=== PATIENT | male | born 1950 | race Caucasian/White ===

== ENCOUNTER → 2018-03-27 02:53 | Outpatient (CLI) | payer OTHER, SELFPAY ==
[2018-03-27 12:53] LABS: Anion Gap 1.1 mmol/L (3-11); BUN 21 mg/dL (7-18); CO2 29.9 mmol/L (21.0-32.0); CREATININE 1.02 mg/dL (0.70-1.30); Calcium 8.5 mg/dL (8.5-10.1); Chloride 105 mmol/L (98-107); Glucose 83 mg/dL (70-100); Potassium 4.8 mmol/L (3.5-5.1); Sodium 136 mmol/L (136-145)
== END ==
PROVIDERS: PCP Family Medicine; Visit Provider Family Medicine
DX: I25.810 Atherosclerosis of coronary artery bypass graft(s) without angina pectoris (principal)
CPT/HCPCS: 36415; 80048

== ENCOUNTER 2021-04-10 10:38 | Outpatient (CLI) | payer MEDICARE, SELFPAY ==
--- NOTE | 2021-04-10 11:15 | RT.EKG_ITS ---
APPROVED REPORT Exam: Resting ECG Reason for Exam: chest pain Patient Location: O HR:69 bpm ECG Measurements Heart Rate 69 AXIS OK 154 P 42 QRSd 98 QRS 77 QT 354 T 267 QTc 380 Conclusion Sinus rhythm...normal P axis, V-rate 60- 99 Probable LVH with secondary repol abnrm...multiple LVH criteria
[2021-04-10 20:16] LABS: Anion Gap 7.6 mmol/L (3-11); BUN 27 mg/dL (7-18); CO2 26.4 mmol/L (21.0-32.0); CREATININE 1.3 mg/dL (0.70-1.30); Calcium 9.1 mg/dL (8.5-10.1); Calculated LDL 84 mg/dL (<100); Chloride 106 mmol/L (98-107); Cholesterol 149 mg/dL (<200); Glucose 93 mg/dL (74-106); HDL Cholesterol 50 mg/dL (40-60); Potassium 4.9 mmol/L (3.5-5.1); Sodium 140 mmol/L (136-145); Triglyceride 78 mg/dL (<150)
== END 2021-04-10 10:39 | disposition home or self-care (01) ==
PROVIDERS: PCP Nurse Practitioner; Visit Provider Family Medicine
DX: I25.119 Atherosclerotic heart disease of native coronary artery with unspecified angina pectoris (principal); E78.5 Hyperlipidemia, unspecified; I25.810 Atherosclerosis of coronary artery bypass graft(s) without angina pectoris; R07.9 Chest pain, unspecified; I25.10 Atherosclerotic heart disease of native coronary artery without angina pectoris
CPT/HCPCS: 80048; 80061; 93010

== ENCOUNTER 2021-04-16 01:01 | Outpatient (CLI) | payer MEDICARE, SELFPAY ==
--- NOTE | 2021-04-16 07:30 | DI.NM_ITS ---
APPROVED REPORT Exam: Pharmacologic paired with low level exercise Patient Location: Out-Patient Room/Bed: Stress Nurse: Jeanette Braxton RN Ordering Provider:LO DANIELLE MD, Contact Number: [phone] BMI: 22.46 Baseline Rhythm: Sinus Rhythm Comment: Inverted T waves in leads in inferolateral leads Indications: Angina, CABG 10 years ago, chest pain, CAD, HLD Medical History Medical History: CAD, HLD, ED, Hx of tobacco use Cardiac Medications: Nitro SL PRN, Atorvastatin, Aspirin, Allergies: Simvastatin Cardiac Risk Factors: Hyperlipidemia, FHX of CAD, CVD, Smoking (gerson) Previous Cardiac Procedures: CABG 2010 Pretest Chest Pain Characteristics: No chest pain Exercise History: Sedentary Physical Disabilities: None Lung Sounds: Clear to auscultation Heart Sounds: Regular Stress Test Details Test: Pharmacologic stress was paired with low level exercise. Reason for pharmacologic stress test: Inferolateral T wave inversions. Nuclear Acquisition: Rest Tc-99m/Stress Tc-99m 1 day Rest Isotope: Tc-99m Sestamibi. Dose: 10.4 Date: 04/16/2021 Injection Time: 0930 Stress Isotope: Tc-99m Sestamibi. Dose: 29.3 Date: 04/16/2021 Injection Time: 1410 HR Resting HR Supine: 80 bpm Max Heart Rate (APMHR): 152.294499 bpm Resting HR Standin bpm Target HR (85% APMHR): 129.458536 bpm Max HR Achieved: 138 bpm % of APMHR: 90.79 Recovery HR: 96 bpm BP Resting BP Supine: 120/68 mmHg Resting BP Standin/74 mmHg Max BP: 156/72 mmHg Recovery BP: 130/70 mmHg ECG Resting ECG: Sinus Rhythm w/ inverted T waves inferolateral leads Ectopy: none Stress ECG: Sinus Tachycardia w/ inverted T waves inferolateral leads ST Change: No significant ST segment changes noted Arrhythmia: occasional PVC Recovery ECG: Sinus Rhythm w/ inverted T waves inferolateral leads Recovery ST Change: No significant ST segment changes noted Recovery Arrhythmia: occasional PVC Clinical Stress Symptoms: Dyspnea Rate Pressure Product: [id number] Stress ECG Conclusion 1. Resting electrocardiogram showed left ventricular hypertrophy with repolarization abnormalities 2. The patient underwent low-level stress, paired with pharmacologic stress with regadenoson 3. Peak heart rate achieved was 90% of predicted for age 4. Electrocardiographically the test was nondiagnostic due to resting ST-T abnormalities Stress Test Summary STAGE HR BP Symptoms NOTES Supine 80 120/68 1 min post Lexiscan injection 128 132/74 mild SOB 3 min post Lexiscan injection 128 156/72 6 min post Lexiscan injection 96 130/70 symptoms resolved. Standing 95 118/74 Lexiscan injection given while patient walked on treadmill at 2.0 mph and 0% grade. MPI Conclusion Myocardial perfusion showed no evidence of significant ischemia or areas of prior infarction EF with stress was 43% Radiologist Interpretation Radiologist Interpretation by: Francisco Alfred MD Interpretation Date/Time: 04/16/2021 16:19:24
[2021-04-16] MEDS: Regadenoson 0.4 MG/5 ML SYR IVP (14:27)
== END 2021-04-16 01:21 ==
PROVIDERS: PCP Nurse Practitioner; Visit Provider Family Medicine
DX: E78.5 Hyperlipidemia, unspecified (principal); I25.810 Atherosclerosis of coronary artery bypass graft(s) without angina pectoris; R07.9 Chest pain, unspecified; Z95.1 Presence of aortocoronary bypass graft; Z82.49 Family history of ischemic heart disease and other diseases of the circulatory system; Z87.891 Personal history of nicotine dependence; R94.39 Abnormal result of other cardiovascular function study
CPT/HCPCS: 78452; 93016; 93018; 93017; J2785

== ENCOUNTER → 2022-07-06 16:36 | Outpatient (CLI) | payer MEDICARE, SELFPAY ==
--- NOTE | 2022-07-06 16:15 | DI.RAD_ITS ---
Exam(s) XR THORACIC SPINE COMPLETE EXAM: XR THORACIC SPINE COMPLETE CLINICAL HISTORY: fall M54.6 PAIN IN T SPINE TECHNIQUE: COMPARISON: CR PORTABLE AP CHEST from 11/02/2010 FINDINGS: Four views were obtained. There are multiple sternal sutures. There is mild loss of height anterior ly of what appears to be T11 or T12. This may represent a compression fracture of uncertain age. Sl ight deformity of posterior cortex is also noted. Probable mild anterior T6 vertebral body compression fracture also noted, of uncertain age. IMPRESSION: Probable compression fractures of uncertain age, no prior studies available for comparison, additiona l evaluation with thoracic spine CT or MR recommended to evaluate the stability of these fractures an d any potential impingement on the spinal canal. Unexpected findings RADIATION DOSE DELIVERED: Total DLP
== END ==
PROVIDERS: PCP Nurse Practitioner Family; Visit Provider Nurse Practitioner Family
DX: M54.6 Pain in thoracic spine (principal); W19.XXXA Unspecified fall, initial encounter; M48.54XA Collapsed vertebra, not elsewhere classified, thoracic region, initial encounter for fracture
CPT/HCPCS: 72072

== ENCOUNTER → 2022-07-14 01:25 | Outpatient (CLI) | payer MEDICARE, SELFPAY ==
--- NOTE | 2022-07-14 06:45 | DI.MRI_ITS ---
Exam(s) MR THORACIC SPINE WO EXAM: MR THORACIC SPINE WO CLINICAL HISTORY: comp fx body of thoracic vertebra,pain,s22.000a. TECHNIQUE: Multiplanar multisequence MRI of the Thoracic spine was performed. COMPARISON: CR PORTABLE AP CHEST from 11/02/2010 CT ABD PELVIS WITH CONTRAST from 07/17/2011 CR XR THORACIC SPINE COMPLETE from 07/06/2022 FINDINGS: Bones: There is loss of height of the T6 vertebral body. There is a mild right convex thoracic scoli osis. In the T6 vertebral body there is mildly heterogeneous signal on the T2 weighted images and hy pointense signal within the body on the T1 weighted images. On the T2 weighted images there is a suly ear hypointense area paralleling the superior endplate suspicious for fracture. There is normal sign al seen in the T11 and T12 vertebral bodies. Degenerative endplate signal changes are seen at T8-T9, T9-T10 and T7-T8. On the T2 weighted images, there is mild hyperintense signal seen in the inferior T4 vertebra which is hypointense on the T1 weighted images. Cord: The thoracic cord is normal size and signal intensity. No intrinsic cord lesion is present. Discs: No disc herniation or bulge is present. Soft tissues: Normal. IMPRESSION: 1. Subacute mild compression fracture of T6. 2. Normal MRI appearance of the T11 and T12 vertebral bodies. No evidence of a fracture. 3. Abnormal signal seen in the inferior aspect of the T4 vertebral body. Differential considerations include fracture, atypical hemangioma or possibly degenerative changes. 4. Multilevel degenerative changes in the thoracic spine. No significant central spinal canal or leticia ral foraminal stenosis. DATA REPOSITORY:
== END ==
PROVIDERS: PCP Nurse Practitioner Family; Visit Provider Nurse Practitioner Family
DX: S22.050A Wedge compression fracture of T5-T6 vertebra, initial encounter for closed fracture (principal); M47.814 Spondylosis without myelopathy or radiculopathy, thoracic region; X58.XXXA Exposure to other specified factors, initial encounter
CPT/HCPCS: 72146

== ENCOUNTER 2022-09-13 01:11 | Outpatient (CLI) | payer MEDICARE, SELFPAY ==
[2022-09-13 09:43] LABS: HCT 42.3 % (40.0-50.0); HGB 13.5 g/dL (13.5-17.5); MCH 31.5 pg (27.0-33.0); MCHC 31.9 % (32.0-36.0); MCV 99 fL (80-95); MPV 8.9 fL (8.0-11.0); Platelet Count 307 10^3/uL (130-400); RBC 4.29 10^6/uL (4.36-5.78); RDW 12.8 % (11.8-14.1); RDW-SD 46.4 fL; WBC 6.01 10^3/uL (4.4-10.8)
[2022-09-13 10:10] LABS: CREATININE 1.3 mg/dL (0.70-1.30); Calculated LDL 67 mg/dL (<100); Cholesterol 139 mg/dL (<200); HDL Cholesterol 56 mg/dL (40-60); Triglyceride 82 mg/dL (<150)
[2022-09-13 10:22] LABS: ALT 36 U/L (16-63); AST 19 U/L (15-37); Albumin 3.7 g/dL (3.4-5.0); Alkaline Phosphatase 71 U/L (46-116); Anion Gap 6.4 mmol/L (3-11); BUN 28 mg/dL (7-18); Bilirubin, Total 0.3 mg/dL (0.2-1.0); CO2 26.6 mmol/L (21.0-32.0); CREATININE 1.3 mg/dL (0.70-1.30); Calcium 8.7 mg/dL (8.5-10.1); Chloride 106 mmol/L (98-107); Glucose 97 mg/dL (74-106); Potassium 4.5 mmol/L (3.5-5.1); Sodium 139 mmol/L (136-145); Total Protein 7.5 g/dL (6.4-8.2)
[2022-09-13 18:11] LABS: PSA, Screening 2.1 ng/mL (<=6.5)
== END 2022-09-13 01:12 | disposition home or self-care (01) ==
PROVIDERS: PCP Nurse Practitioner Family; Visit Provider Nurse Practitioner
DX: E78.5 Hyperlipidemia, unspecified (principal); I25.810 Atherosclerosis of coronary artery bypass graft(s) without angina pectoris; E11.9 Type 2 diabetes mellitus without complications; N52.9 Male erectile dysfunction, unspecified; Z87.891 Personal history of nicotine dependence; Z12.5 Encounter for screening for malignant neoplasm of prostate
CPT/HCPCS: 36415; 80053; 80061; 84153; 85027; 82565

== ENCOUNTER 2022-09-17 00:39 | Outpatient (CLI) | payer MEDICARE, SELFPAY ==
--- NOTE | 2022-09-17 07:45 | DI.CTLCSR_ITS ---
Exam(s) CT CHEST LUNG CANCER SCREEN EXAM: CT CHEST LUNG CANCER SCREEN CLINICAL HISTORY: Screening for lung cancer,CURRENT SMOKER, F17.210 TECHNIQUE: Imaging Protocol: Axial computed tomography images with coronal and sagittal reformatted images were created and reviewed. Low dose screening protocol. COMPARISON: CR XR THORACIC SPINE COMPLETE from 07/06/2022 FINDINGS: Tracheobronchial tree: No bronchiectasis or mucus plugging.. Mediastinum and Lisset: No dominant adenopathy or fluid collection. Pulmonary parenchyma: Mild apical scarring. No consolidation or dominant measurable mass. Mild emph ysematous changes, greater at the lung bases. Bleb medial right lower lobe.. Lung Nodules: 4 millimeter perifissural nodule noted anteriorly along the right minor fissure. Pleura: No effusion. No pneumothorax. Heart: Status post CABG. The heart is not dilated. Severe coronary artery calcifications are seen. Aorta: Thoracic aorta non-dilated.Mild atherosclerotic changes. Upper abdomen: Atherosclerotic changes of the abdominal aorta. Severe calcifications are noted at t he proximal renal arteries bilaterally. Bones: Sternal wires. Soft Tissues: Unremarkable. IMPRESSION: No suspicious pulmonary nodules. Lung RADS Cat 1 - Negative: No nodules and definitely benign nodules Lung-RADS 1.0 CATEGORIES: Category 0 - Prior chest CT exam(s) being located for comparison. Category 1 - Annual screening in 12 months. No nodules or definitely benign nodules. Category 2 - Annual screening in 12 months. Benign appearance. Nodules with low likelihood of becomin g active cancer. Category 3 - 6-month follow-up. Probably benign. Short-term follow-up suggested. Nodules with low lik elihood of becoming active cancer. Category 4A - 3-month follow-up and CT/PET if >8 mm in size. Suspicious finding. Findings which requi re additional testing. Category 4B - Findings which require additional testing and tissue sampling. Category 4X - Category 3 or 4 nodules with additional features or imaging findings that increases the suspicion of malignancy. Modifier S- Potentially clinically significant findings (non lung cancer) RADIATION DOSE DELIVERED: 88.41mGy.cm Total DLP DATA REPOSITORY: All CT scans at this facility are submitted to the National Radiology Data Registry (NRDR) Dose Index Registry (DIR) with the [employer] ([employer]). RADIATION OPTIMIZATION: All CT scans at this facility use at least one of these dose optimization te chniques: automated exposure control; mA and/or kV adjustment per patient size (includes targeted exa ms where dose is matched to clinical indication); or iterative reconstruction.
== END 2022-09-17 00:59 ==
LOC: DI 00:39
PROVIDERS: PCP Nurse Practitioner Family; Visit Provider Nurse Practitioner Family
DX: F17.210 Nicotine dependence, cigarettes, uncomplicated (principal); Z12.2 Encounter for screening for malignant neoplasm of respiratory organs
CPT/HCPCS: 71271

== ENCOUNTER 2023-12-09 10:28 | Outpatient (CLI) | payer MEDICARE, SELFPAY ==
[2023-12-09 10:37] LABS: HCT 41.9 % (40.0-50.0); HGB 13.6 g/dL (13.5-17.5); MCH 31.6 pg (27.0-33.0); MCHC 32.5 % (32.0-36.0); MCV 97 fL (80-95); MPV 9.2 fL (8.0-11.0); Platelet Count 298 10^3/uL (130-400); RDW 13.1 % (11.8-14.1); RDW-SD 46.7 fL; WBC 6.24 10^3/uL (4.4-10.8)
[2023-12-09 11:34] LABS: Anion Gap 5.2 mmol/L (3-11); BUN 25 mg/dL (7-18); CO2 27.8 mmol/L (21.0-32.0); CREATININE 1.4 mg/dL (0.70-1.30); Calcium 8.9 mg/dL (8.5-10.1); Calculated LDL 58 mg/dL (<100); Chloride 106 mmol/L (98-107); Cholesterol 127 mg/dL (<200); Estimated GFR 53.74 (mL/min/1.73m2); Glucose 95 mg/dL (74-106); HDL Cholesterol 56 mg/dL (40-60); Potassium 4.8 mmol/L (3.5-5.1); Sodium 139 mmol/L (136-145); Triglyceride 65 mg/dL (<150)
== END 2023-12-09 10:29 | disposition home or self-care (01) ==
LOC: LBO 10:29
PROVIDERS: PCP Nurse Practitioner Family; Visit Provider Nurse Practitioner Family
DX: Z00.00 Encounter for general adult medical examination without abnormal findings (principal); I25.810 Atherosclerosis of coronary artery bypass graft(s) without angina pectoris; E78.5 Hyperlipidemia, unspecified; Z87.891 Personal history of nicotine dependence; S22.000A Wedge compression fracture of unspecified thoracic vertebra, initial encounter for closed fracture; N52.03 Combined arterial insufficiency and corporo-venous occlusive erectile dysfunction; I25.10 Atherosclerotic heart disease of native coronary artery without angina pectoris; K57.90 Diverticulosis of intestine, part unspecified, without perforation or abscess without bleeding
CPT/HCPCS: 36415; 80048; 80061; 85027

== ENCOUNTER 2024-04-10 03:00 | Emergency (ER) | payer MEDICARE, SELFPAY ==
[2024-04-10 02:59] VITALS: BP 180/74; PULSE 68; RESP 16; TEMP 36.8; O2SAT 100
--- NOTE | 2024-04-10 03:00 | DI.CT_ITS ---
Exam(s) CT LUMBAR SPINE RECONS CT ABDOMEN PELVIS W EXAM: CT ABDOMEN PELVIS W CLINICAL HISTORY: right hip/groin pain. TECHNIQUE: Imaging Protocol: Axial computed tomography images with coronal and sagittal reformatted images were created and reviewed none. Images of the lumbar spine were reconstructed from the abdomen pelvic CT in bone and soft tissue algo rithm. CONTRAST MATERIAL: Intravenous: Omnipaque 350 Contrast volume:100 ml Oral: no COMPARISON: CT CT LUMBAR SPINE RECONS from 04/10/2024 FINDINGS: ABDOMEN and PELVIS: Lung Bases: No acute findings. Liver: Normal density. No suspicious mass. Gallbladder and biliary tract: No radiodense calculus. No biliary dilation. Pancreas: Normal density. No abnormal calcifications or inflammatory process. No evidence of mass. Spleen: Normal. Kidneys: Normal size, contour and axis. No radiodense stones. No obstructive uropathy. No suspicious masses seen. Adrenal glands: No masses seen. Vasculature: Mild dilatation of the infrarenal aorta to 3 cm. Severe atherosclerotic changes. Soft tissues: Unremarkable. Bladder: No gross wall thickening. No calculi.No focal mass. Bowel: No obstruction. No bowel wall thickening. Appendix normal. Mild diverticulosis. No evidenc e of diverticulitis. Moderate quantity of stool. Peritoneal cavity: No ascites. No focal collection. No mesenteric inflammatory response. Reproductive organs: Prostate mildly enlarged. Lymph nodes: No pathologically enlarged lymph nodes. Bones: The hip joint spaces are maintained. No significant degenerative changes. Degenerative changes are present in the lumbar spine greatest at L4-5. There is bilateral neural for aminal narrowing at this level as well as moderate central canal stenosis. There is a left L5 spondy lolysis but no spondylolisthesis. Degenerative changes seen to a lesser extent at the other levels. IMPRESSION:: No acute abnormality in the abdomen or pelvis. Degenerative changes at L4-5 cause moderate central canal stenosis and bilateral neural foraminal na rrowing. Left L5 spondylolysis. 3 centimeter infrarenal aortic aneurysm. Atherosclerotic changes. RADIATION DOSE DELIVERED: 255.47mGy.cm Total DLP DATA REPOSITORY: All CT scans at this facility are submitted to the National Radiology Data Registry (NRDR) Dose Index Registry (DIR) with the [employer] ([employer]). RADIATION OPTIMIZATION: All CT scans at this facility use at least one of these dose optimization te chniques: automated exposure control; mA and/or kV adjustment per patient size (includes targeted exa ms where dose is matched to clinical indication); or iterative reconstruction.
[2024-04-10 03:02] VITALS: BP 180/74; PULSE 72; O2SAT 99
[2024-04-10 03:03] VITALS: O2SAT 99
[2024-04-10] MEDS: MORPHine 4 MG/ML SYR (03:13)
[2024-04-10] MEDS: diazePAM 5 MG TAB (03:13)
[2024-04-10] MEDS: Ketorolac 15 MG/ML VIAL (03:13)
[2024-04-10 03:15] LABS: Abs Immature Grans 0.03 10^3/uL (0.0-0.06); Absolute Basophil Count 0.04 10^3/uL (0.0-0.2); Absolute Eosinophil Count 0.07 10^3/uL (0.0-0.7); Absolute Lymphocyte Count 0.94 10^3/uL (1.2-3.4); Absolute Monocyte Count 0.38 10^3/uL (0.1-0.8); Absolute Neutrophil Count 5.32 10^3/uL (1.2-6.7); Basophils % 0.6 %; HGB 12.5 g/dL (13.5-17.5); Immature Grans % 0.4 %; Lymphocytes % 13.9 %; MCH 32.3 pg (27.0-33.0); MCHC 32.1 % (32.0-36.0); MCV 101 fL (80-95); MPV 9.2 fL (8.0-11.0); Monocytes % 5.6 %; Neutrophils % 78.5 %; Platelet Count 285 10^3/uL (130-400); RBC 3.87 10^6/uL (4.36-5.78); RDW 12.7 % (11.8-14.1); RDW-SD 47.6 fL; WBC 6.78 10^3/uL (4.4-10.8)
[2024-04-10 03:25] LABS: Bilirubin Negative (Negative); Blood Trace-intact (Negative); Clarity Clear (Clear); Glucose Negative (Negative); Ketones Negative (Negative); Leukocyte Esterase Negative (Negative); Nitrite Negative (Negative); Specific Gravity >= 1.030 (1.005-1.025); Urobilinogen 0.2 mg/dL (Up to 0.2); pH 5.5 (5-8)
--- NOTE | 2024-04-10 03:25 | ED.GENADUL_ITS ---
Discharge Plan Disposition Patient Disposition: Home Condition: Improving Discharge Details Clinical Impression: Acute hip pain Primary Care Provider: Eleni Burton ED Provider: Vanesa Murcia Home Meds and New Rx's Prescriptions: New diazepam 5 mg tablet 5 mg PO BID PRNQty: 7 0RF lidocaine 5 % adhesive patch,medicated 1 patch topical DAILY Qty: 15 0RF Rx Instructions: leave on most painful area for up to 12 hrs Continued nitroglycerin [Nitrostat] 0.4 mg tablet, sublingual 0.4 mg Sublingual PRN Qty: 25 3RF Rx Instructions: FOR CHEST PAIN. glucosamine HCl 500 mg tablet 500 mg PO DAILY Rx Instructions: administer with a meal turmeric 400 mg capsule 400 mg PO DAILY aspirin [Aspir-81] 81 MG tablet,delayed release (DR/EC) 81 mg PO DAILY acetaminophen [Tylenol Extra Strength] 500 MG tablet 2 tab PO BID PRN atorvastatin [Lipitor] 20 mg tablet 20 mg PO HS Qty: 90 3RF Discharge Instructions Instructions: Opioids for Short-Term Treatment of Pain ED, Hip Pain ED Additional Instructions: Tylenol and ibuprofen over the counter for pain; follow the directions on the bottle. Diazapam up to twice a day as needed for muscle spasm. Lidocaine patch on the hip; change very 24 hours You can take oxycodone up to twice a day as needed for pain that does not respond to the other medications. Call your primary care doctor today to schedule an appointment for within the next 48 hours to followup on your visit here. Your CT showed an incidental aneurysm in your aorta; this is small. Your primary care doctor may want to get repeat imaging of this at some point to see if it is getting larger. Return to the emergency department for new or worsening symptoms including uncontrolled pain, new/different/worse pain, inability to walk, numbness, tingling, weakness, bowel/bladder incontinence, or if you have any other concerns. Referrals: Eleni Burton NP [Primary Care Provider] - [facility] General Mode of arrival: EMS . Date/Time Provider Initiated Documentation: 04/10/24 03:24 . Limitations to Documentation: no limitations . Information obtained by: patient . HPI Narrative: 73yo M with hx CAD, sciatica, presenting for acute right hip and low back pain. Started around midnight while he was playing with the dog, has been worsening since then. Initially was able to sleep but has been waking to severe spasms of pain. Pain is in his right hip, radiates to low back and right thigh/groin. 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 No numbness, tingling, or weakness. No bowel/bladder incontinence. No testicular pain. No recent falls or injuries. Otherwise in his usual state of health with no fevers, chills, rash, nausea, vomiting, abdominal pain, dysuria, hematuria, or other concerns. Related Data Home Medications ?Medication ?Instructions ?Recorded ?Confirmed acetaminophen 500 mg tablet 2 tab PO BID PRN 01/17/13 04/10/24 (Tylenol Extra Strength) aspirin 81 mg tablet,delayed 81 mg PO DAILY 01/17/13 04/10/24 release (Aspir-) glucosamine HCl 500 mg tablet 500 mg PO DAILY 07/04/20 04/10/24 turmeric 400 mg capsule 400 mg PO DAILY 07/04/20 04/10/24 nitroglycerin 0.4 mg sublingual 0.4 mg sublingual PRN #25 tab-caps 08/30/22 04/10/24 tablet (Nitrostat) atorvastatin 20 mg tablet (Lipitor) 20 mg PO HS #90 tab-caps 11/29/23 04/10/24 diazepam 5 mg tablet 5 mg PO BID PRN #7 tabs 04/10/24 lidocaine 5 % topical patch 1 patch topical DAILY #15 ea 04/10/24 Previous Rx's ?Medication ?Instructions ?Recorded nitroglycerin 0.4 mg sublingual 0.4 mg sublingual PRN #25 tab-caps 08/30/22 tablet (Nitrostat) atorvastatin 20 mg tablet (Lipitor) 20 mg PO HS #90 tab-caps 11/29/23 diazepam 5 mg tablet 5 mg PO BID PRN #7 tabs 04/10/24 lidocaine 5 % topical patch 1 patch topical DAILY #15 ea 04/10/24 Allergies Allergy/AdvReac Type Severity Reaction Status Date / Time simvastatin AdvReac Unknown MYALGIAS Verified 04/10/24 03:04 General Stated Complaint: Nk/Back Pain ARI: 3 Review of Systems Narrative: see HPI Exam Narrative Exam Narrative: General: Alert, well appearing Head: Normocephalic, atraumatic Neck: Trachea midline, ?Neck supple. ENT: ?MMM.? Cardiac: ?RRR, no murmurs appreciated Resp: No respiratory distress. CTAB. Abd: ?Soft, non-distended, nontender : ?No suprapubic tenderness. No CVA tenderness. No palpable inguinal her nias. Extremities: ?No deformities.? No peripheral edema. Back: No midline tenderness. Reproducible symptoms with palpation of right sacral region with palpable muscle spasm. No other tenderness. Neuro: ? GCS 15.? PERRL.? EOMI.? Fluent speech, no dysarthria. Motor- 5/5 strength symmetric bilateral lower extremities Sensation- ?Intact to light touch and symmetric multiple dermatomes bilateral lower extremities, no saddle anesthesia Gait/station: ?Normal stance.? No truncal ataxia. Steady gait with equal normal steps Course Vital Signs Vital signs: Vital Signs Temperature 36.8 C 04/10/24 02:59 Pulse 68 04/10/24 02:59 Respiratory Rate 16 04/10/24 02:59 Blood Pressure 180/74 H 04/10/24 02:59 Pulse Oximetry 100 04/10/24 02:59 Temperature 36.8 C 04/10/24 02:59 Temperature Source Temporal Artery Scan 04/10/24 02:59 Pulse 68 04/10/24 02:59 Respiratory Rate 16 04/10/24 02:59 Respiratory Effort Normal 04/10/24 03:05 Blood Pressure 180/74 H 04/10/24 02:59 Pulse Oximetry 100 04/10/24 02:59 Oxygen Delivery Method Room Air 04/10/24 02:59 Oxygen Flow Rate 0 04/10/24 02:59 Pain Level 4 04/10/24 03:13 Lab/Test Results Lab/Test Results: Laboratory Tests Range/Units 04/10/24 03:02 WBC (4.4-10.8) 10^3/uL 6.78 RBC (4.36-5.78) 10^6/uL 3.87 L Hgb (13.5-17.5) g/dL 12.5 L Hct (40.0-50.0) % 39.0 L MCV (80-95) fL 101 H MCH (27.0-33.0) pg 32.3 MCHC (32.0-36.0) % 32.1 RDW (11.8-14.1) % 12.7 Plt Count (130-400) 10^3/uL 285 MPV (8.0-11.0) fL 9.2 Immature Gran % % 0.4 Neutrophils % % 78.5 Lymphocytes % % 13.9 Monocytes % % 5.6 Eosinophils % % 1.0 Basophils % % 0.6 Nucleated RBC % (0.0-0.3) % 0.0 Absolute Neutrophils (1.2-6.7) 10^3/uL 5.32 Absolute Lymphocytes (1.2-3.4) 10^3/uL 0.94 L Absolute Monocytes (0.1-0.8) 10^3/uL 0.38 Absolute Eosinophils (0.0-0.7) 10^3/uL 0.07 Absolute Basophils (0.0-0.2) 10^3/uL 0.04 Medical Decision Making 73yo M with hx CAD, sciatica, presenting for acute right hip and low back pain. Started around midnight while he was playing with the dog, has been worsening since then. Initially was able to sleep but has been waking to severe spasms of pain. Pain is in his right hip, radiates to low back and right thigh/groin. No neurologic symptoms. No trauma. Systemically well with no hx of IVDU . Hypertensive on arrival, vital signs otherwise reassuring. Normal neurologic exam. Does have reproducible symptoms with palpation of right sacral region with palpable muscle spasm in this area. No other tenderness. Suspect muscular etiology however given age will evaluate for acute intrabdominal process and spinal pathology with CT imaging. Nephrolithiasis also possible given location and spastic nature of pain. Took tylenol prior to arrival. Will treat symptoms with morphine, toradol, diazapam for spasm, decadron, lidocaine patch. Not concerned for cauda equina, spinal epidural hematoma, cord compression, aortic dissection, testicular pathology; no indication for MRI or US imaging. Labs reviewed as below, CBC with no leukocytosis, mild anemia, CMP with slightly elevated Cr at 1.4 and no actionable abnormalities, UA not suggestive of infection, does have trace hematuria. CT abd pelvis independently reviewed, no hydronephrosis or clear obstruction or free fluid on my view; agree with radiology read below. 3cm infrarenal AAA noted, will need outpatient followup, unlikely related to pts presentation today. On reassessment patient reports pain has improved though is still present, none at rest but comes in waves particularly with movement. Able to ambulate in the department steadily. Repeat vital signs improved. Will discharge home with close return precautions, short course of diazapam and oxycodone. Discharged home; discharge instructions and return precautions were reviewed with patient who verbalized understanding. All questions were answered and he is in full agreement with the plan. Imaging Data Radiologic Study: Imaging: CT Scan Radiologist's impression: CT abd pelvis: IMPRESSION: 1. Fluid in nondilated small bowel, nonspecific and can be a normal finding or reflective of mild inflammation. 2. Additional findings as above. 3. Additional studies dictated separately L spine: IMPRESSION 1. No acute lumbar spine fracture seen. 2. Degenerative changes as above. 3. Additional studies dictated separately. Lab Data Lab results reviewed: Yes I reviewed the patient's lab results. Labs: Laboratory Tests Range/Units 04/10/24 04/10/24 04/10/24 03:02 03:11 03:20 WBC (4.4-10.8) 10^3/uL 6.78 RBC (4.36-5.78) 10^6/uL 3.87 L Hgb (13.5-17.5) g/dL 12.5 L Hct (40.0-50.0) % 39.0 L MCV (80-95) fL 101 H MCH (27.0-33.0) pg 32.3 MCHC (32.0-36.0) % 32.1 RDW (11.8-14.1) % 12.7 Plt Count (130-400) 10^3/uL 285 MPV (8.0-11.0) fL 9.2 Immature Gran % % 0.4 Neutrophils % % 78.5 Lymphocytes % % 13.9 Monocytes % % 5.6 Eosinophils % % 1.0 Basophils % % 0.6 Nucleated RBC % (0.0-0.3) % 0.0 Absolute Neutrophils (1.2-6.7) 10^3/uL 5.32 Absolute Lymphocytes (1.2-3.4) 10^3/uL 0.94 L Absolute Monocytes (0.1-0.8) 10^3/uL 0.38 Absolute Eosinophils (0.0-0.7) 10^3/uL 0.07 Absolute Basophils (0.0-0.2) 10^3/uL 0.04 PT (9.1-11.1) sec 10.4 INR (0.9-1.1) 1.0 APTT (23.6-32.8) sec 25.4 Sodium (136-145) mmol/L 138 Potassium (3.5-5.1) mmol/L 4.5 Chloride (98-107) mmol/L 104 Carbon Dioxide (21.0-32.0) mmol/L 25.3 Anion Gap (3-11) mmol/L 8.7 BUN (7-18) mg/dL 28 H Creatinine (0.70-1.30) mg/dL 1.4 H Est GFR (CKD-EPI 2020) (mL/min/1.73m2) 53.74 Glucose (74-106) mg/dL 132 H Calcium (8.5-10.1) mg/dL 8.2 L Total Bilirubin (0.2-1.0) mg/dL 0.17 L AST (15-37) U/L 21 ALT (16-63) U/L 23 Alkaline Phosphatase (46-116) U/L 69 Total Protein (6.4-8.2) g/dL 6.6 Albumin (3.4-5.0) g/dL 2.9 L Urine Color (Yellow) Yellow Urine Clarity (Clear) Clear Urine pH (5-8) 5.5 Ur Specific [place] (1.005-1.025) >= 1.030 H Urine Protein (Neg-Trace) mg/dL >=300 H Urine Ketones (Negative) mg/dL Negative Urine Blood (Negative) Trace-intact H Urine Nitrite (Negative) Negative Urine Bilirubin (Negative) Negative Urine Urobilinogen (Up to 0.2) mg/dL 0.2 Ur Leukocyte Esterase (Negative) Negative Urine RBC (0-2) HPF 0-2 Urine WBC (0-5) HPF Negative Ur Epithelial Cells (Negative) HPF Negative Urine Crystals (Negative) HPF Negative Urine Bacteria (Negative) HPF Rare Urine Casts (Negative) LPF Negative Urine Mucus (Negative) Trace Ur Culture Indicated? No Urine Glucose (Negative) mg/dL Negative Quality:SDOH Health Related Social Needs: No Data to Display PFSH All Active Problems (Updated 04/10/24 @ 07:51 by Vanesa Murcia MD) Acute hip pain (Acute) Elevated blood pressure reading without diagnosis of hypertension (Acute) Compression fracture of body of thoracic vertebra (Acute) Thoracic back pain (Acute) Erectile dysfunction (Acute) Coronary artery disease involving autologous artery coronary bypass graft without angina pectoris (Acute 03/02/16) History of tobacco use (Acute) 30-40 Pack years Hyperlipidemia (Acute) Medical History Atherosclerosis of [place] coronary artery of [place] heart without angina pectoris CAD (coronary artery disease) Diverticulosis (05/09/17) Idiopathic scoliosis Pectus excavatum Surgical History Colonoscopy - MAC (05/09/17) History of coronary artery bypass surgery PROCEDURE AORTOCOR BYPAS-2 COR ART, 11/10/10 Family History Mother , 93 Essential hypertension Crohn disease Heart disease Hyperlipidemia Father , 96 Heart disease Hyperlipidemia Asthma Brother Essential hypertension Depression Heart disease Hyperlipidemia Asthma Maternal Grandfather , 84 Essential hypertension Heart disease Hyperlipidemia Paternal Grandfather , 61 Heart disease Hyperlipidemia Maternal Grandmother , 87 Essential hypertension Stroke Asthma Heart disease Hyperlipidemia Paternal Grandmother , 99 Asthma Hyperlipidemia Hypertension Son , age 46 No problems noted. Daughter No problems noted. Social History (Updated 12/20/23 @ 15:42 by Evangelina Win) Smoking/Tobacco Use Status: Current-Occasional Tobacco Type: pipe Tobacco: How many years used: 50 Quit status: has quit before Second Hand Exposure: Yes Smoking risk assessment performed?: Yes Alcohol Intake: current Alcohol Intake frequency: 0-2 drinks per day Alcohol type: beer and hard liquor Drug use: Never Substance use type: does not use Caregiver/Support person: No Household members: spouse Housing: house Communication Needs: None Do you need help understanding health information?: Rarely Pets and animals: Yes Pets and animals: dog(s) Sexually active: Yes Do you think of yourself as: straight/heterosexual Current gender identity: male What is your relationship status?: How often do you talk on the phone with friends or family?: once per week How often do you get together with friends or relatives?: once per week How often do you attend methodist or scientologist services?: 1-3 times per year Do you belong to any clubs or organized social groups?: yes Panel score (0-1 are the most socially isolated patients): 2 What type of physical activity do you participate in: walking Duration: 45-60 minutes/day Frequency: 3-4 times per week Cassy/Rastafari: Gnosticist Special cassy needs: No Seatbelt use: always Helmet use: No Drive intox or ride w/intox racecar driver: No
[2024-04-10 03:29] LABS: Prothrombin Time 10.4 sec (9.1-11.1)
[2024-04-10 03:31] LABS: ALT 23 U/L (16-63); AST 21 U/L (15-37); Albumin 2.9 g/dL (3.4-5.0); Alkaline Phosphatase 69 U/L (46-116); Anion Gap 8.7 mmol/L (3-11); BUN 28 mg/dL (7-18); Bilirubin, Total 0.17 mg/dL (0.2-1.0); CO2 25.3 mmol/L (21.0-32.0); CREATININE 1.4 mg/dL (0.70-1.30); Calcium 8.2 mg/dL (8.5-10.1); Chloride 104 mmol/L (98-107); Estimated GFR 53.74 (mL/min/1.73m2); Glucose 132 mg/dL (74-106); Potassium 4.5 mmol/L (3.5-5.1); Sodium 138 mmol/L (136-145); Total Protein 6.6 g/dL (6.4-8.2)
[2024-04-10 03:34] LABS: Bacteria Rare HPF (Negative); C & S Indicated? No; Casts Negative LPF (Negative); Crystals Negative HPF (Negative); Epithelial Cells Negative HPF (Negative); Mucus Trace (Negative); RBC 0-2 HPF (0-2); WBC Negative HPF (0-5)
[2024-04-10 03:40] LABS: PTT Activated 25.4 sec (23.6-32.8)
[2024-04-10] MEDS: Omnipaque 350 MG/ML 100 ML BTL IJ (03:44)
[2024-04-10] MEDS: Normal Saline - Diluent 50 ML VIAL IJ (03:45)
[2024-04-10] MEDS: Normal Saline Flush 10 ML SYR IVP (03:46)
--- NOTE | 2024-04-10 05:00 | DI.VRAD_ITS ---
PROCEDURE INFORMATION: Exam: CT Abdomen And Pelvis With Contrast Exam date and time: 04/10/2024 3:32 AM Age: 73 years old Clinical indication: Abdominal pain; Localized; Lower; Patient HX: Right hip/groin pain TECHNIQUE: Imaging protocol: Computed tomography of the abdomen and pelvis with contrast. Contrast material: OMNIPAQUE 350; Contrast volume: 100 ml; Contrast route: INTRAVENOUS (IV); COMPARISON: No relevant prior studies are available for comparison. FINDINGS: Limitations: Mild motion artifact. Liver: No focal hepatic lesion identified. Gallbladder and biliary ducts: No radiodense gallbladder calculi seen. Pancreas: No CT evidence for acute pancreatitis. Spleen: No splenomegaly. Adrenal glands: No mass. Kidneys and ureters: Cortical thinning in the kidneys. Stomach and bowel: No intestinal obstruction is evident. Fluid in nondilated small bowel, nonspecific. Retained fecal material is present in the colon. Colonic diverticula. Appendix: No evidence of appendicitis. Intraperitoneal space: No free air. Vasculature: Atherosclerotic changes in the aorta and its branches. 3 cm infrarenal abdominal aortic aneurysm. Lymph nodes: No acute findings. Urinary bladder: No acute findings. Reproductive: Enlarged, heterogeneous prostate. Bones/joints: No pertinent acute abnormality seen. Soft tissues: No pertinent acute abnormality seen. IMPRESSION: 1. Fluid in nondilated small bowel, nonspecific and can be a normal finding or reflective of mild inflammation. 2. Additional findings as above. 3. Additional studies dictated separately. Dictated and Authenticated by: Ese Cardoza MD. Ordering:RAMON Alexis MD
--- NOTE | 2024-04-10 05:00 | DI.VRAD_ITS ---
PROCEDURE INFORMATION: Exam: CT Lumbar Spine Without Contrast Exam date and time: 04/10/2024 3:32 AM Age: 73 years old Clinical indication: Other: Right hip/groin pain TECHNIQUE: Imaging protocol: Computed tomography of the lumbar spine without contrast. Radiation optimization: All CT scans at this facility use at least one of these dose optimization techniques: automated exposure control; mA and/or kV adjustment per patient size (includes targeted exams where dose is matched to clinical indication); or iterative reconstruction. COMPARISON: No relevant prior studies are available for comparison. FINDINGS: Limitations: Mild motion artifact. Bones/joints: No lumbar spine fracture seen. Multilevel degenerative changes. At L1-L2 there is facet and ligamentous hypertrophy contributing to mild canal narrowing. At L2-L3 there is facet and ligamentous hypertrophy contributing to mild right foraminal narrowing and mild canal narrowing. At L3-L4 there is mild disc bulge and facet and ligamentous hypertrophy contributing to moderate right and marked left foraminal narrowing. Nerve root impingement not excluded. There is mild canal narrowing. At L4-L5 there is disc osteophyte complex and facet and ligamentous hypertrophy contributing to marked bilateral foraminal narrowing left greater than right. Nerve root impingement not excluded. There is moderate canal narrowing. At L5-S1 there is mild left foraminal narrowing. Please note the spinal canal contents and nerve roots would be better evaluated with MRI. Posterior fusion defects in the sacrum. Left pars interarticularis defect at L5. Soft tissues: See Bones/joints finding. IMPRESSION: 1. No acute lumbar spine fracture seen. 2. Degenerative changes as above. 3. Additional studies dictated separately. Dictated and Authenticated by: Ese Cardoza MD. Ordering:RAMON Alexis MD
[2024-04-10] MEDS: Lidocaine 5% Patch 1 PATCH TP (06:35)
[2024-04-10] MEDS: diazePAM 5 MG TAB PO (06:35)
[2024-04-10] MEDS: Dexamethasone 4 MG TAB PO (06:35)
[2024-04-10 08:05] VITALS: BP 133/62; PULSE 64; RESP 18; TEMP 36.8; O2SAT 99
[2024-04-10] MEDS: oxyCODONE 5 MG TAB PO (08:10)
== END 2024-04-10 08:32 | disposition home or self-care (01) ==
PROVIDERS: Emergency Provider Student in an Organized Health Care Education/Training Program; PCP Nurse Practitioner Family
DX: M54.50 Low back pain, unspecified (principal); M25.551 Pain in right hip; I71.43 Infrarenal abdominal aortic aneurysm, without rupture; I25.10 Atherosclerotic heart disease of native coronary artery without angina pectoris; Z95.1 Presence of aortocoronary bypass graft; Z79.82 Long term (current) use of aspirin
CPT/HCPCS: 36415; 80053; 99285; 74177; 81003; 81015; 85025; 85610; 85730; 99284; J1885; J2270; J3490; J8540

== ENCOUNTER 2024-08-17 00:40 | Outpatient (CLI) | payer MEDICARE, SELFPAY ==
--- NOTE | 2024-08-17 07:00 | DI.CTLCSR_ITS ---
Exam(s) CT CHEST LUNG CANCER SCREEN EXAM: CT CHEST LUNG CANCER SCREEN CLINICAL HISTORY: Screening for lung cancer,F17.210,SMOKER TECHNIQUE: Imaging Protocol: Axial computed tomography images with coronal and sagittal reformatted images were created and reviewed. Low dose screening protocol. COMPARISON: CR XR THORACIC SPINE COMPLETE from 07/06/2022 MR MR THORACIC SPINE WO from 07/14/[address] CHEST LUNG CANCER SCREEN from 09/17/2022 FINDINGS: Tracheobronchial tree: No bronchiectasis or mucus plugging. Mediastinum and Lisset: No dominant adenopathy or fluid collection. Pulmonary parenchyma: No consolidation or dominant measurable mass. Mild emphysematous changes, grea ter at the lung bases. A bleb is again noted at the medial right lower lobe.. Mild biapical scarrin g. Mildly increased interstitial changes, greatest in the inferior lingula Lung Nodules: Stable 4 millimeter perifissural nodule. Pleura: No effusion. No pneumothorax. Heart: The heart is not dilated. Severe coronary artery calcifications are seen. No pericardial effus ion. Aorta: Thoracic aorta non-dilated. Upper abdomen: Unremarkable. Bones: Stable mild compression fracture of T6. Schmorl's node now seen at the inferior endplate of T 6. Degenerative disc changes present. Mild upper thoracic scoliosis. Sternal wires. Soft Tissues: Unremarkable. IMPRESSION: No suspicious pulmonary nodules. Lung RADS Cat 1 - Negative: No nodules and definitely benign nodules Lung-RADS 1.0 CATEGORIES: Category 0 - Prior chest CT exam(s) being located for comparison. Category 1 - Annual screening in 12 months. No nodules or definitely benign nodules. Category 2 - Annual screening in 12 months. Benign appearance. Nodules with low likelihood of becomin g active cancer. Category 3 - 6-month follow-up. Probably benign. Short-term follow-up suggested. Nodules with low lik elihood of becoming active cancer. Category 4A - 3-month follow-up and CT/PET if >8 mm in size. Suspicious finding. Findings which requi re additional testing. Category 4B - Findings which require additional testing and tissue sampling. Category 4X - Category 3 or 4 nodules with additional features or imaging findings that increases the suspicion of malignancy. Modifier S- Potentially clinically significant findings (non lung cancer) RADIATION DOSE DELIVERED: !Error Total DLP DATA REPOSITORY: All CT scans at this facility are submitted to the National Radiology Data Registry (NRDR) Dose Index Registry (DIR) with the [employer] (ACR). RADIATION OPTIMIZATION: All CT scans at this facility use at least one of these dose optimization te chniques: automated exposure control; mA and/or kV adjustment per patient size (includes targeted exa ms where dose is matched to clinical indication); or iterative reconstruction.
== END 2024-08-17 01:00 ==
LOC: DI 00:40
PROVIDERS: PCP Nurse Practitioner Family; Visit Provider Nurse Practitioner Family
DX: F17.210 Nicotine dependence, cigarettes, uncomplicated (principal); Z12.2 Encounter for screening for malignant neoplasm of respiratory organs
CPT/HCPCS: 71271